=== PATIENT | male | born 1990 | race Caucasian/White ===

== ENCOUNTER 2018-08-23 11:23 | Day surgery (SDC) | payer OTHER ==
[2018-08-23] MEDS ORDERED: PROPOFOL 40 ML (13:00)
[2018-08-23] MEDS ORDERED: LIDOCAINE 100 MG SYRINGE (13:00)
[2018-08-23] MEDS ORDERED: HYDROmorphONE 1 MG/5 ML IV SYRINGE IV (13:30)
== END 2018-08-23 16:10 | disposition home or self-care (01) ==
LOC: GIL 11:23
DX: K92.1 Melena (principal); K64.8 Other hemorrhoids; K64.4 Residual hemorrhoidal skin tags; D50.0 Iron deficiency anemia secondary to blood loss (chronic)
CPT/HCPCS: 45378

== ENCOUNTER 2019-03-08 13:24 | Day surgery (SDC) | payer OTHER ==
[2019-03-08] MEDS: LACTATED RINGER'S 1,000 ML IV (16:00)
[2019-03-08] MEDS: Metronidazole 500 MG in NS 100 ML IVPB (16:10)
[2019-03-08] MEDS: CEFAZOLIN 2 GM/50 ML (PMX) 50 ML IVPB (16:15)
[2019-03-08] MEDS ORDERED: FENTAnyl 50 MCG/ML VIAL (16:22)
[2019-03-08] MEDS ORDERED: MIDAZOLAM 1 MG/ML 2 ML INJ (16:22)
[2019-03-08] MEDS ORDERED: HYDROmorphONE 1 MG/5 ML IV SYRINGE IV ×2 (16:30)
[2019-03-08] MEDS ORDERED: FENTAnyl 50 MCG/ML VIAL IV ×2 (16:30)
[2019-03-08] MEDS ORDERED: METOCLOPRAMIDE 10 MG INJ IV (16:30)
[2019-03-08] MEDS ORDERED: SUCCINYLCHOLINE CHLORIDE 100 MG/5 ML SYG IV (16:41)
[2019-03-08] MEDS ORDERED: PROPOFOL 40 ML (16:41)
[2019-03-08] MEDS ORDERED: ROCURONIUM 50 MG INJ ×2 (16:41→17:13)
[2019-03-08] MEDS ORDERED: metroNIDAZOLE 500 MG/NS (PMX) 100 ML IVPB (16:41)
[2019-03-08] MEDS ORDERED: CEFAZOLIN 1 GM INJ (16:41)
[2019-03-08] MEDS: BUPIVACAINE 0.5% (SDV) 30 ML INJ (16:48)
[2019-03-08] MEDS: LIDOCAINE 1%/EPI 30 ML INJ (16:48)
[2019-03-08] MEDS ORDERED: KETOROLAC 30 MG INJ (17:13)
[2019-03-08] MEDS ORDERED: ONDANSETRON 4 MG INJ (17:13)
[2019-03-08] MEDS ORDERED: DEXAMETHASONE 4 MG/ML 5 ML INJ (17:13)
[2019-03-08] MEDS ORDERED: METOCLOPRAMIDE 10 MG INJ (17:13)
[2019-03-08] MEDS ORDERED: SUGAMMADEX SODIUM 200 MG/2 ML VIAL IV ×2 (17:25→17:30)
[2019-03-08] MEDS ORDERED: MEPERIDINE 25 MG INJ (17:36)
[2019-03-08] MEDS: ACETAMINOPHEN 1000MG/100ML IV 100 ML IVPB (17:53)
[2019-03-08] MEDS: MEPERIDINE 25 MG INJ IV (17:53)
[2019-03-08] MEDS: ONDANSETRON 4 MG INJ IV (17:54)
[2019-03-08] MEDS: HYDROmorphONE 1 MG/5 ML IV SYRINGE IV (17:54)
[2019-03-08] MEDS: FENTAnyl 50 MCG/ML VIAL IV (18:34)
== END 2019-03-08 19:01 | disposition home or self-care (01) ==
LOC: SDS 13:24
DX: K64.8 Other hemorrhoids (principal); G47.33 Obstructive sleep apnea (adult) (pediatric); E66.9 Obesity, unspecified; Z68.32 Body mass index [BMI] 32.0-32.9, adult
CPT/HCPCS: 45300